=== PATIENT | female | born 1980 | race Caucasian/White ===

== ENCOUNTER 2019-06-06 10:49 | Emergency (ER) | payer MEDICAID ==
[~2019-06-06] VITALS: Ht 162.6 cm; Wt 82.0 kg
[~2019-06-06 10:49] MED LIST: DOCU-131 PO; IBUP-1222 PO; None per pt
--- NOTE | 2019-06-06 11:07 | NUR ---
Pt ambulated to [facility] 8 per pedis. Pt has strong steady gait. Pt c/o headache x3 days, now c/o ear pain. Pt has been exposed to strep throat, denies throat pain. Bilateral ears are red/dull.
--- NOTE | 2019-06-06 11:45 | NUR ---
PT TO XRAY, FAMILY NOW AT BEDSIDE.
--- NOTE | 2019-06-06 11:58 | NUR ---
DISHCARGE INSTRUCTIONS GIVEN TO PATIENT WITH ONE PRESCRIPTION. RN DISCUSSES PRESCRIPTION WITH PATIEN TO INCLUDE USE, DISPOSAL AND SIDE EFFECTS. PT VERBALIZES UNDERSTANDING OF ALL INSTRUCTIONS AND FOLLOW UP. PT AMBULATED OUT OF ED PER PEDIS WITH FAMILY MEMBER.
[2019-06-06 12:02] VITALS: BP 126/89
== END 2019-06-06 12:13 | disposition home or self-care (01) ==
LOC: ED 11:50
DX: H66.93 Otitis media, unspecified, bilateral (principal); J06.9 Acute upper respiratory infection, unspecified; F17.200 Nicotine dependence, unspecified, uncomplicated; R05 Cough
CPT/HCPCS: 71046; 99283

== ENCOUNTER 2019-06-07 03:01 | Emergency (ER) | payer MEDICAID ==
[~2019-06-07] VITALS: Ht 165.1 cm; Wt 82.2 kg
[2019-06-07 03:02] VITALS: BP 105/69
[2019-06-07] MEDS ORDERED: IBUPROFEN 800 MG TABLET PO STA (03:24)
[2019-06-07] MEDS ORDERED: ACETAMINOPHEN 325 MG TABLET PO ONE (03:30)
[2019-06-07] MEDS ORDERED: ACETAMINOPHEN 325 MG TABLET ONE (03:40)
[2019-06-07] MEDS ORDERED: IBUPROFEN 800 MG TABLET ONE (03:40)
--- NOTE | 2019-06-07 03:44 | NUR ---
pt resting in chair, medicated per mar, call light within reach
== END 2019-06-07 04:02 | disposition home or self-care (01) ==
LOC: ED 03:30
DX: H65.01 Acute serous otitis media, right ear (principal); H72.91 Unspecified perforation of tympanic membrane, right ear
CPT/HCPCS: 99283